=== PATIENT | female | born 1955 | race Caucasian/White ===

== ENCOUNTER → 2018-04-10 | Outpatient (CLI) | payer MEDICAID ==
[2018-04-10 07:32] LABS: Basophils % (A) 1 %; Eosinophils # (A) 0.4 k/uL (0-0.7); Eosinophils % (A) 7 %; HCT 45.9 % (34.0-46.0); HGB 14.7 gm/dL (11.4-16.0); Lymphocytes # (A) 1.7 k/uL (1.0-4.8); Lymphocytes % (A) 26 %; MCH 29.5 pg (25.0-35.0); MCV 92.2 fL (80.0-100.0); Monocytes # (A) 0.7 k/uL (0-1.0); Monocytes % (A) 10 %; Neutrophils # (A) 3.5 k/uL (1.3-7.7); Neutrophils % (A) 55 %; Platelet Count 233 k/uL (150-450); RBC 4.98 m/uL (3.80-5.40); RDW 12.6 % (11.5-15.5); WBC 6.4 k/uL (3.8-10.6)
[2018-04-10 07:39] LABS: INR 2.4 (<1.2); Prothrombin Time 21.5 sec (9.0-12.0)
[2018-04-10 07:55] LABS: ALT 36 U/L (9-52); AST 26 U/L (14-36); Albumin 4.2 g/dL (3.5-5.0); Alkaline Phosphatase 93 U/L (38-126); Anion Gap 10 mmol/L; Blood Urea Nitrogen 19 mg/dL (7-17); Calcium 9.1 mg/dL (8.4-10.2); Carbon Dioxide 28 mmol/L (22-30); Chloride 104 mmol/L (98-107); Cholesterol 186 mg/dL (<200); Glucose 92 mg/dL (74-99); HDL Cholesterol 57 mg/dL (40-60); LDL Cholesterol,Calculated 99 mg/dL (0-99); Potassium 4.4 mmol/L (3.5-5.1); Sodium 142 mmol/L (137-145); Total Bilirubin 0.8 mg/dL (0.2-1.3); Total Protein 6.8 g/dL (6.3-8.2); Triglycerides 148 mg/dL (<150)
[2018-04-10 08:05] LABS: T4, Free (Free Thyroxine) 1.29 ng/dL (0.78-2.19)
== END | disposition home or self-care (01) ==
LOC: LABWHC1 07:01
PROVIDERS: ATTEND Family Medicine
DX: I10 Essential (primary) hypertension (principal); I48.91 Unspecified atrial fibrillation; E03.9 Hypothyroidism, unspecified
CPT/HCPCS: 36415; 80053; 80061; 84439; 84443; 85025; 85610

== ENCOUNTER → 2018-06-14 | Outpatient (CLI) | payer SELFPAY ==
--- NOTE | 2018-06-14 14:12 | MM ---
Reason for exam: screening (asymptomatic). History: Benign excisional biopsy. Physical Findings: A clinical breast exam by your physician is recommended on an annual basis and results should be correlated with mammographic findings. MG Screening Mammo w CAD Bilateral CC and MLO view(s) were taken. There are scattered fibroglandular densities. Stable benign calcifications in the left breast. There is no discrete abnormality. No significant changes when compared with prior studies. ASSESSMENT: Benign, BI-RAD 2 RECOMMENDATION: Routine screening mammogram of both breasts in 1 year.
== END ==
LOC: RADMAMWWP 06:50
PROVIDERS: ATTEND Family Medicine
DX: Z12.31 Encounter for screening mammogram for malignant neoplasm of breast (principal)
CPT/HCPCS: 77067

== ENCOUNTER → 2018-08-14 | Outpatient (CLI) | payer MEDICAID ==
[2018-08-14 07:48] LABS: INR 2.4 (<1.2); Prothrombin Time 21.8 sec (9.0-12.0)
== END ==
LOC: LABWHC1 07:04
PROVIDERS: ATTEND Family Medicine
DX: I48.91 Unspecified atrial fibrillation (principal)
CPT/HCPCS: 36415; 85610

== ENCOUNTER → 2019-01-30 | Outpatient (CLI) | payer MEDICAID ==
[2019-01-30 07:48] LABS: INR 1.9 (<1.2); Prothrombin Time 18.3 sec (9.0-12.0)
[2019-01-30 08:16] LABS: Basophils % (A) 1 %; Eosinophils # (A) 0.2 k/uL (0-0.7); Eosinophils % (A) 4 %; HGB 12.8 gm/dL (11.4-16.0); Lymphocytes # (A) 1.4 k/uL (1.0-4.8); Lymphocytes % (A) 26 %; MCH 29.5 pg (25.0-35.0); MCHC 31.9 g/dL (31.0-37.0); MCV 92.6 fL (80.0-100.0); Mean Platelet Volume 7.2; Monocytes # (A) 0.4 k/uL (0-1.0); Monocytes % (A) 8 %; Neutrophils % (A) 58 %; Platelet Count 245 k/uL (150-450); RBC 4.33 m/uL (3.80-5.40); RDW 13.1 % (11.5-15.5); WBC 5.3 k/uL (3.8-10.6)
[2019-01-30 11:45] LABS: Albumin 4.2 g/dL (3.80-4.90); Albumin/Globulin Ratio 2.47 (1.60-3.17); Anion Gap 6.8 mmol/L (4.00-12.00); Calcium 9.1 mg/dL (8.7-10.3); Carbon Dioxide 28.2 mmol/L (21.6-31.8); Globulin 1.7 g/dL (1.6-3.3); Potassium 4.6 mmol/L (3.5-5.5); Total Bilirubin 0.9 mg/dL (0.2-1.2); Total Protein 5.9 g/dL (6.2-8.2)
[2019-01-30 11:55] LABS: T4, Free (Free Thyroxine) 1.5 ng/dL (0.80-1.80)
== END | disposition home or self-care (01) ==
LOC: LABWHC1 07:14
PROVIDERS: ATTEND Family Medicine
DX: E03.9 Hypothyroidism, unspecified (principal); I10 Essential (primary) hypertension; I48.91 Unspecified atrial fibrillation
CPT/HCPCS: 36415; 80053; 80061; 84439; 84443; 85025; 85610

== ENCOUNTER 2019-04-26 20:13 | Inpatient (IN) | payer MEDICAID ==
[2019-04-26] MEDS ORDERED: KETOROLAC 30 MG/ML 1 ML VIAL IVP STA (21:27)
[2019-04-26] MEDS ORDERED: ONDANSETRON 4 MG/2 ML VIAL IVP STA (21:27)
[2019-04-26] MEDS ORDERED: SODIUM CHLORIDE 0.9% 2,000 ML IV STA (21:27)
--- NOTE | 2019-04-26 21:35 | ED ---
Nausea/Vomiting/Diarrhea HPI - General Chief complaint: Nausea/Vomiting/Diarrhea Stated complaint: Vomiting Time Seen by Provider: 04/26/19 21:18 Source: patient, RN notes reviewed, old records reviewed Mode of arrival: ambulatory Limitations: no limitations - History of Present Illness Initial comments: This is a 63-year-old female who presents prescribed today with nausea vomiting diarrhea episodes after eating scallops last night. She reports it started lessening abdominal cramping. She woke up this morning said multiple episodes of vomiting. She states she has history of atrial defibrillation feels her heart is racing. Patient states that she is on Coumadin. Patient states she has chills. Denies any specific abdominal pain. Patient states that she's had no bloody stools or emesis. - Related Data Allergies Allergy/AdvReac Type Severity Reaction Status Date / Time No Known Allergies Allergy Verified 04/26/19 21:04 Review of Systems ROS Statement: Those systems with pertinent positive or pertinent negative responses have been documented in the HPI. ROS Other: All systems not noted in ROS Statement are negative. Past Medical History Past Medical History: Atrial Fibrillation, Heart Failure, Hypertension, Thyroid Disorder Past Surgical History: Cholecystectomy, Heart Catheterization, Hysterectomy, Joint Replacement, Tonsillectomy Additional Past Surgical History / Comment(s): breast lumpectomy, urinary sling, left knee replacement, D & C, left ovary remaining, Past Psychological History: No Psychological Hx Reported Smoking Status: Never smoker Past Alcohol Use History: Rare Past Drug Use History: Marijuana General Exam - General Exam Comments Initial Comments: This is a 63-year-old female. Alert and oriented. No distress. Limitations: no limitations General appearance: alert, in no apparent distress Head exam: Present: atraumatic, normocephalic, normal inspection Eye exam: Present: normal appearance, PERRL, EOMI. Absent: scleral icterus, conjunctival injection, periorbital swelling ENT exam: Present: normal exam, mucous membranes moist Neck exam: Present: normal inspection. Absent: tenderness, meningismus, lymphadenopathy Respiratory exam: Present: normal lung sounds bilaterally. Absent: respiratory distress, wheezes, rales, rhonchi, stridor Cardiovascular Exam: Present: regular rate, normal rhythm, normal heart sounds. Absent: systolic murmur, diastolic murmur, rubs, gallop, clicks GI/Abdominal exam: Present: soft, normal bowel sounds. Absent: distended, tenderness, guarding, rebound, rigid Extremities exam: Present: normal inspection, full ROM, normal capillary refill. Absent: tenderness, pedal edema, joint swelling, calf tenderness Back exam: Present: normal inspection Neurological exam: Present: alert, oriented X3, CN II-XII intact Psychiatric exam: Present: normal affect, normal mood Skin exam: Present: warm, dry, intact, normal color. Absent: rash Course Vital Signs 04/26/19 04/26/19 04/26/19 20:57 22:38 23:45 Temperature 99.4 F 98.8 F Pulse Rate 127 H 110 H 101 H Respiratory 17 18 18 Rate Blood Pressure 154/101 187/101 191/91 O2 Sat by Pulse 95 98 Oximetry 04/27/19 04/27/19 01:14 03:59 Temperature Pulse Rate 112 H 102 H Respiratory 18 18 Rate Blood Pressure 170/99 169/110 O2 Sat by Pulse 99 98 Oximetry Medical Decision Making - Medical Decision Making Patient 63-year-old female with history of A. fib. She presents with rapid ventricular 130 bpm. She reports having multiple vomiting episodes after eating scallops last night. She was given IV fluids labwork obtained. Patient's labs are reviewed and relatively unremarkable. She did have noted hematuria. Denies any sick significant back pain. Discussed for further evaluation of hematuria due to CT looking for renal cyst. At this time computed tomography scan shows evidence of atrophic gallbladder, also evidence of possibility of pancreatic mass recommended CT with contrast. Patient's amylase and lipase are normal. Patient is given close to 3 L of fluids and stay of her heart rate 120 bpm. On reevaluation Patient was informed of these abnormal CT results. Discussed Patient and admitted for A. fib with RVR, hematuria and possible pancreatic mass. Discussed treatment plan with Dr. Gutierrez. - Lab Data Result diagrams: 04/26/19 21:19 04/26/19 21: Lab Results 04/26/19 04/26/19 04/26/19 Range/Units 21: 21: 21: WBC 11.6 H (3.8-10.6) k/uL RBC 5.15 (3.80-5.40) m/uL Hgb 15.0 (11.4-16.0) gm/dL Hct 45.8 (34.0-46.0) % MCV 88.9 (80.0-100.0) fL MCH 29.1 (25.0-35.0) pg MCHC 32.7 (31.0-37.0) g/dL RDW 13.2 (11.5-15.5) % Plt Count 254 (150-450) k/uL Neutrophils % 84 % Lymphocytes % 10 % Monocytes % 4 % Eosinophils % 1 % Basophils % 0 % Neutrophils # 9.7 H (1.3-7.7) k/uL Lymphocytes # 1.1 (1.0-4.8) k/uL Monocytes # 0.5 (0-1.0) k/uL Eosinophils # 0.1 (0-0.7) k/uL Basophils # 0.0 (0-0.2) k/uL PT 21.0 H (9.0-12.0) sec INR 2.2 H (<1.2) APTT 32.4 H (22.0-30.0) sec Sodium 137 (137-145) mmol/L Potassium 4.2 (3.5-5.1) mmol/L Chloride 99 (98-107) mmol/L Carbon Dioxide 26 (22-30) mmol/L Anion Gap 12 mmol/L BUN 11 (7-17) mg/dL Creatinine 0.58 (0.52-1.04) mg/dL Est GFR (CKD-EPI)AfAm >90 (>60 ml/min/1.73 sqM) Est GFR (CKD-EPI)NonAf >90 (>60 ml/min/1.73 sqM) Glucose 143 H (74-99) mg/dL Calcium 9.2 (8.4-10.2) mg/dL Total Bilirubin 0.6 (0.2-1.3) mg/dL AST 27 (14-36) U/L ALT 22 (9-52) U/L Alkaline Phosphatase 106 (38-126) U/L Troponin I (0.000-0.034) ng/mL Total Protein 7.5 (6.3-8.2) g/dL Albumin 4.6 (3.5-5.0) g/dL Amylase 48 (30-110) U/L Lipase 103 (23-300) U/L Urine Color Urine Appearance (Clear) Urine pH (5.0-8.0) Ur Specific Gustavus (1.001-1.035) Urine Protein (Negative) Urine Glucose (UA) (Negative) Urine Ketones (Negative) Urine Blood (Negative) Urine Nitrite (Negative) Urine Bilirubin (Negative) Urine Urobilinogen (<2.0) mg/dL Ur Leukocyte Esterase (Negative) Urine RBC (0-5) /hpf Urine WBC (0-5) /hpf Ur Squamous Epith Cells (0-4) /hpf Urine Mucus (None) /hpf 04/26/19 04/26/19 Range/Units 21:19 23:33 WBC (3.8-10.6) k/uL RBC (3.80-5.40) m/uL Hgb (11.4-16.0) gm/dL Hct (34.0-46.0) % MCV (80.0-100.0) fL MCH (25.0-35.0) pg MCHC (31.0-37.0) g/dL RDW (11.5-15.5) % Plt Count (150-450) k/uL Neutrophils % % Lymphocytes % % Monocytes % % Eosinophils % % Basophils % % Neutrophils # (1.3-7.7) k/uL Lymphocytes # (1.0-4.8) k/uL Monocytes # (0-1.0) k/uL Eosinophils # (0-0.7) k/uL Basophils # (0-0.2) k/uL PT (9.0-12.0) sec INR (<1.2) APTT (22.0-30.0) sec Sodium (137-145) mmol/L Potassium (3.5-5.1) mmol/L Chloride (98-107) mmol/L Carbon Dioxide (22-30) mmol/L Anion Gap mmol/L BUN (7-17) mg/dL Creatinine (0.52-1.04) mg/dL Est GFR (CKD-EPI)AfAm (>60 ml/min/1.73 sqM) Est GFR (CKD-EPI)NonAf (>60 ml/min/1.73 sqM) Glucose (74-99) mg/dL Calcium (8.4-10.2) mg/dL Total Bilirubin (0.2-1.3) mg/dL AST (14-36) U/L ALT (9-52) U/L Alkaline Phosphatase (38-126) U/L Troponin I <0.012 (0.000-0.034) ng/mL Total Protein (6.3-8.2) g/dL Albumin (3.5-5.0) g/dL Amylase (30-110) U/L Lipase (23-300) U/L Urine Color Yellow Urine Appearance Clear (Clear) Urine pH 5.5 (5.0-8.0) Ur Specific Gustavus 1.022 (1.001-1.035) Urine Protein 1+ H (Negative) Urine Glucose (UA) Negative (Negative) Urine Ketones 1+ H (Negative) Urine Blood Moderate H (Negative) Urine Nitrite Negative (Negative) Urine Bilirubin Negative (Negative) Urine Urobilinogen <2.0 (<2.0) mg/dL Ur Leukocyte Esterase Negative (Negative) Urine RBC 70 H (0-5) /hpf Urine WBC 2 (0-5) /hpf Ur Squamous Epith Cells <1 (0-4) /hpf Urine Mucus Rare H (None) /hpf 04/26/19 21:35 EKG shows atrial fibrillation with RVR P BCs. Right reactive. Nonspecific T- wave abnormality. Possible digitalis effect. Abnormal EKG. Ventricular 131 bpm. : As directed. She methodist 90 seconds. QTQTC 320/484 ms. - Radiology Data Radiology results: report reviewed 3 mm left lower lobe pulmonary nodule. Gallbladder none identified. He surgically absent and contracted. Mild biliary dilation of the common bile duct 1.2 cm prominence of the great head and processes or the possibility of pancreatic mass following up with post CT contrast recommended. Patient also has no evidence of hydronephrosis or renal colliculi identified. Disposition Clinical Impression: Dehydration, Nausea & vomiting, Abnormal CT of the abdomen, Hematuria, Afib Disposition: ADMITTED IP TO THIS HOSP Condition: Stable Is patient prescribed a controlled substance at d/c from ED?: No Referrals: Betty Espinosa DO [Primary Care Provider] - 1-2 days Time of Disposition: 03:35
[2019-04-26 21:40] LABS: Basophils % (A) 0 %; Eosinophils # (A) 0.1 k/uL (0-0.7); Eosinophils % (A) 1 %; HCT 45.8 % (34.0-46.0); Lymphocytes # (A) 1.1 k/uL (1.0-4.8); Lymphocytes % (A) 10 %; MCH 29.1 pg (25.0-35.0); MCHC 32.7 g/dL (31.0-37.0); MCV 88.9 fL (80.0-100.0); Mean Platelet Volume 7.2; Monocytes # (A) 0.5 k/uL (0-1.0); Monocytes % (A) 4 %; Neutrophils # (A) 9.7 k/uL (1.3-7.7); Neutrophils % (A) 84 %; Platelet Count 254 k/uL (150-450); RBC 5.15 m/uL (3.80-5.40); RDW 13.2 % (11.5-15.5); WBC 11.6 k/uL (3.8-10.6)
--- NOTE | 2019-04-26 21:49 | XR ---
EXAMINATION TYPE: XR KUB DATE OF EXAM: 04/26/2019 COMPARISON: NONE HISTORY: Vomiting and cramping TECHNIQUE: 2 views upright FINDINGS: Bowel gas pattern is normal. There is no sign of intestinal obstruction or pneumoperitoneum . Fecal pattern is normal. There is slight lumbar levoscoliosis. Lung bases are clear. There are no p athologic calcifications over the kidneys. IMPRESSION: Nonacute abdomen.
[2019-04-26 21:51] LABS: ALT 22 U/L (9-52); AST 27 U/L (14-36); African American GFR (CKD) >90 (>60 ml/min/1.73 sqM); Albumin 4.6 g/dL (3.5-5.0); Alkaline Phosphatase 106 U/L (38-126); Amylase 48 U/L (30-110); Anion Gap 12 mmol/L; Blood Urea Nitrogen 11 mg/dL (7-17); Calcium 9.2 mg/dL (8.4-10.2); Carbon Dioxide 26 mmol/L (22-30); Chloride 99 mmol/L (98-107); Glucose 143 mg/dL (74-99); INR 2.2 (<1.2); Lipase 103 U/L (23-300); Partial Thromboplastin Time 32.4 sec (22.0-30.0); Potassium 4.2 mmol/L (3.5-5.1); Sodium 137 mmol/L (137-145); Total Bilirubin 0.6 mg/dL (0.2-1.3); Total Protein 7.5 g/dL (6.3-8.2)
[2019-04-26] MEDS ORDERED: LABETALOL SYRINGE 5 MG/ML IVP STA (22:57)
[2019-04-26] MEDS: SODIUM CHLORIDE 0.9% 1,000 ML IV SCH (23:06)
[2019-04-26 23:55] LABS: Appearance,Urine Clear (Clear); Bilirubin,Urine Negative (Negative); Blood,Urine Moderate (Negative); Color,Urine Yellow; Glucose,Urine (UA) Negative (Negative); Ketones,Urine 1+ (Negative); Leukocyte Esterase,Urine Negative (Negative); Mucus,Urine Rare /hpf; Nitrite,Urine Negative (Negative); PH, Urine 5.5 (5.0-8.0); Protein,Urine 1+ (Negative); RBC,Urine 70 /hpf (0-5); Specific Gravity,Urine 1.022 (1.001-1.035); Squamous Epithelial Cell,Urine <1 /hpf (0-4); Urobilinogen,Urine <2.0 mg/dL (<2.0); WBC,Urine 2 /hpf (0-5)
[2019-04-27] MEDS ORDERED: diphenhydrAMINE 50 MG/ML 1 ML VIAL IVP STA (00:23)
[2019-04-27] MEDS ORDERED: METOCLOPRAMIDE 5 MG/ML 2 ML VIAL IVP STA (00:23)
--- NOTE | 2019-04-27 01:41 | CT ---
EXAM: CT Abdomen and Pelvis Without Intravenous Contrast CLINICAL HISTORY: ITS.REASON CT Reason: Pain, hematuruia TECHNIQUE: Axial computed tomography images of the abdomen and pelvis without intravenous contrast. CTDI is 19.3 mGy and DLP is 1143 mGy-cm. This CT exam was performed using one or more of the following dose reduction techniques: automated exposure control, adjustment of the mA and/or kV according to patient size, and/or use of iterative reconstruction technique. COMPARISON: None available FINDINGS: Lung bases: Imaged lung bases are clear focal infiltrates. 3 mm left lower lobe pulmonary nodule. ABDOMEN: Liver: Liver is unremarkable. Gallbladder and bile ducts: Gallbladder not clearly identified and may be surgically absent or contracted. No calcified gallstones. Mild dilatation of common bile duct measuring 1.2 cm to level of pancreatic head. Pancreas: Prominence of pancreatic head and uncinate process. No peripancreatic inflammatory changes or fluid collections. Spleen: Spleen is unremarkable. Adrenals: No adrenal masses. Kidneys and ureters: Kidneys are of normal size bilaterally. No definite renal calculi identified. No evidence of hydronephrosis. No obstructing ureteral calculi. Stomach and bowel: No evidence of bowel obstruction or pneumoperitoneum. Colon is nondistended limiting colonic evaluation. PELVIS: Appendix: No evidence of appendicitis. Bladder: Urinary bladder is nondistended. No bladder calculi. Reproductive: Status post previous hysterectomy. ABDOMEN and PELVIS: Intraperitoneal space: No pelvic free fluid. Bones/joints: Hypertrophic degenerative changes involving lower thoracic spine with prominent anterior ossified information. Multilevel lumbar spine degenerative disc disease and spondylosis. Soft tissues: Small fat-containing umbilical hernia. Vasculature: Moderate calcific atherosclerotic disease. No abdominal aortic aneurysm. Lymph nodes: No evidence of lymphadenopathy. IMPRESSION: 3 mm left lower lobe pulmonary nodule. Gallbladder not clearly identified and may be surgically absent or contracted. Mild biliary dilatation with common bile duct measuring 1.2 cm to level of pancreatic head. Prominence of pancreatic head and uncinate process raising possibility of pancreatic mass/neoplasm. Follow-up pre-and postcontrast CT recommended. No evidence of hydronephrosis and no definite renal calculi identified. <MYCVCSECTION> [employer] 04/27/19 01:46 Verify Receipt Verified receipt with Dr. Lozano on 04/27 01:46 (-04:00)
[2019-04-27] MEDS ORDERED: NALOXONE 0.4 MG/ML 1 ML VIAL IV PRN (03:35)
[2019-04-27] MEDS ORDERED: MORPHINE SULFATE 4 MG/ML SYRINGE IV PRN (03:35)
[2019-04-27] MEDS ORDERED: IBUPROFEN 400 MG TAB PO PRN (03:35)
[2019-04-27] MEDS ORDERED: hydrALAZINE HCL 20 MG/ML 1 ML VIAL IVP STA (04:04)
[2019-04-27 04:53] VITALS: BMI 38.5
[2019-04-27] MEDS: SODIUM CHLORIDE 0.9% 1,000 ML IV SCH ×2 (08:36→21:16)
[2019-04-27] MEDS ORDERED: PANTOPRAZOLE 40 MG/10 ML VIAL IV SCH (09:00)
[2019-04-27] MEDS: ACETAMINOPHEN TAB 325 MG TAB PO PRN (09:45)
[2019-04-27] MEDS ORDERED: DILTIAZEM CD 240 MG CAP.ER.24H PO SCH (10:15)
[2019-04-27] MEDS: FUROSEMIDE 20 MG TAB PO SCH (11:52)
[2019-04-27] MEDS: LOSARTAN 50 MG TAB PO SCH (11:52)
[2019-04-27] MEDS: LEVOTHYROXINE 88 MCG TAB PO SCH (11:52)
[2019-04-27] MEDS: ONDANSETRON 4 MG/2 ML VIAL IVP PRN (12:56)
[2019-04-27] MEDS: WARFARIN 10 MG TAB PO SCH (19:44)
--- NOTE | 2019-04-27 19:59 | P.HPIM ---
History of Present Illness H&P Date: 04/27/19 Chief Complaint: Nausea vomiting History of presenting complaint: This is a 63-year-old patient of Dr. Espinosa. Chronic stable medical conditions include atrial fibrillation, questionable congestive heart failure, hypertension, hypothyroid. Today Monday, patient on night went out to eat at's scallops. Later on she started having abdominal pain. And nausea that night. That is yesterday she had vomiting several times. Became weak tired rundown. Patient felt both "cool and warm. Tired rundown. Admitted for same. Started on IV fluids. Early this morning she vomited once and once this afternoon. is present. Denies diarrhea Review of systems: GEN.: Weak and tired EYES: None HEENT: None NECK: None RESPIRATORY: None CARDIOVASCULAR: None GASTROINTESTINAL: As above GENITOURINARY: None MUSCULOSKELETAL: None LYMPHATICS: None HEMATOLOGICAL: None PSYCHIATRY: None NEUROLOGICAL: None Social history: Does not smoke or drink alcohol. . Family history: Reviewed, noncontributory to presentation Physical examination: VITAL SIGNS: 99.4, 127, 17, 1 54/1 01, 95% room air GENERAL: BMI 38.4, laying in bed, tired appearing. EYES: Pupils equal. Conjunctiva normal. HEENT: External appearance of nose and ears normal, oral cavity dry. NECK: JVD not raised; masses not palpable. HEART: First and second heart sounds are normal; no edema. LUNGS: Respiratory rate normal; clear to auscultation. ABDOMEN: Soft, minimally tender, liver spleen not palpable, no masses palpable. PSYCH: Alert and oriented x3; mood and affect normal. NEUROLOGICAL: Cranial nerves grossly intact; no facial asymmetry, power and sensation grossly intact. LYMPHATICS: No lymph nodes palpable in the axilla and neck Investigations, reviewed in the clinical context: White count 11.6 hemoglobin 15 INR 2.2 potassium 4.2 creatinine 0.58 EKG tracing personally reviewed by me shows atrial fibrillation with a rate about 131 Computed tomography scan of the abdomen-3 mm left lower lobe pulmonary nodule, prominence of pancreatic head Assessment: -Suspect acute food poisoning possibly viral in a patient with scallops followed by abdominal pain, multiple episodes of vomiting. -Persistent atrial fibrillation currently with a rapid ventricular rate with a contribution from dehydration -Chronic congestive heart failure EF not known -Essential hypertension -Hypothyroidism -Obesity BMI 38.4 -Clinically dehydrated Plan: Home medications resumed. Put on clear liquid diet. Care was discussed with the patient. Follow electrolytes. Patient late in the evening went back into sinus rhythm. We'll keep a close eye. If patient goes back into A. fib with a rapid rate then we will consult cardiology. Patient is put on telemetry. will be followed hemodynamically closely Past Medical History Past Medical History: Atrial Fibrillation, Heart Failure, Hypertension, Thyroid Disorder History of Any Multi-Drug Resistant Organisms: None Reported Past Surgical History: Cholecystectomy, Heart Catheterization, Hysterectomy, Joint Replacement, Tonsillectomy Additional Past Surgical History / Comment(s): breast lumpectomy, urinary sling, left knee replacement, D & C, left ovary remaining, Past Psychological History: No Psychological Hx Reported Smoking Status: Never smoker Past Alcohol Use History: Rare Past Drug Use History: Marijuana Medications and Allergies Home Medications Medication Instructions Recorded Confirmed Type Aspirin [Adult Low Dose Aspirin EC] 81 mg PO DAILY 04/27/19 04/27/19 History Cholecalciferol [Vitamin D3 (25 2,000 unit PO DAILY 04/27/19 04/27/19 History Mcg = 1000 Iu)] Diltiazem HCl [Cartia Xt] 240 mg PO DAILY 04/27/19 04/27/19 History Furosemide [Lasix] 20 mg PO DAILY 04/27/19 04/27/19 History Levothyroxine Sodium [Synthroid] 88 mcg PO DAILY 04/27/19 04/27/19 History Losartan Potassium 100 mg PO DAILY 04/27/19 04/27/19 History Magnesium Oxide [Mag-Ox] 250 mg PO Q48H 04/27/19 04/27/19 History Warfarin [Coumadin] 7.5 mg PO MOWE 04/27/19 04/27/19 History Warfarin [Coumadin] 10 mg PO SUTUTHFRSA 04/27/19 04/27/19 History Allergies Allergy/AdvReac Type Severity Reaction Status Date / Time No Known Allergies Allergy Verified 04/27/19 08:39 Physical Exam Vitals: Vital Signs Temp Pulse Pulse Resp BP BP Pulse Ox 04/27/19 16:00 98.1 F 91 14 178/98 95 04/27/19 12:00 98.5 F 98 9 L 146/93 97 04/27/19 08:00 98.1 F 101 H 21 145/87 96 04/27/19 07:00 117 H 23 04/27/19 06:00 112 H 9 L 04/27/19 05:00 98.3 F 110 H 13 145/87 04/27/19 04:27 98.3 F 112 H 10 L 145/87 96 04/27/19 04:25 102 H 18 173/102 98 04/27/19 04:00 103 H 10 L 04/27/19 03:59 102 H 18 169/110 98 04/27/19 03:00 99 13 178/117 04/27/19 02:00 103 H 19 177/119 04/27/19 01:14 112 H 18 170/99 99 04/27/19 01:00 120 H 21 166/102 04/27/19 00:00 108 H 9 L 191/91 04/26/19 23:45 101 H 18 191/91 04/26/19 23:00 109 H 29 H 187/101 04/26/19 22:43 10 L 04/26/19 22:38 98.8 F 110 H 18 187/101 98 04/26/19 20:57 99.4 F 127 H 17 154/101 95 Intake and Output 04/27/19 04/27/19 04/27/19 06:59 14:59 22:59 Intake Total 200 600 Balance 200 600 Intake: IV 200 600 Sodium Chloride 0.9% 1, 200 600 000 ml @ 100 mls/hr IV . Q10H [facility] Rx#:[id number] Other: Voiding Method Toilet Toilet # Voids 1 1 Results CBC & Chem 7: 04/26/19 21:19 04/26/19 21:19 Labs: Abnormal Lab Results - Last 24 Hours (Table) 04/26/19 04/26/19 04/26/19 Range/Units 21:19 21:19 21:19 WBC 11.6 H (3.8-10.6) k/uL Neutrophils # 9.7 H (1.3-7.7) k/uL PT 21.0 H (9.0-12.0) sec INR 2.2 H (<1.2) APTT 32.4 H (22.0-30.0) sec Glucose 143 H (74-99) mg/dL Urine Protein (Negative) Urine Ketones (Negative) Urine Blood (Negative) Urine RBC (0-5) /hpf Urine Mucus (None) /hpf 04/26/19 Range/Units 23:33 WBC (3.8-10.6) k/uL Neutrophils # (1.3-7.7) k/uL PT (9.0-12.0) sec INR (<1.2) APTT (22.0-30.0) sec Glucose (74-99) mg/dL Urine Protein 1+ H (Negative) Urine Ketones 1+ H (Negative) Urine Blood Moderate H (Negative) Urine RBC 70 H (0-5) /hpf Urine Mucus Rare H (None) /hpf
[2019-04-27] MEDS: LACTATED RINGERS 1,000 ML IV SCH (20:45)
[2019-04-27] MEDS: FAMOTIDINE 20 MG TAB PO SCH (21:16)
[2019-04-28] MEDS: ONDANSETRON 4 MG/2 ML VIAL IVP PRN ×2 (02:15→09:49)
[2019-04-28] MEDS: ACETAMINOPHEN TAB 325 MG TAB PO PRN ×2 (02:16→16:04)
[2019-04-28 05:22] LABS: HCT 41.4 % (34.0-46.0); HGB 13.3 gm/dL (11.4-16.0); MCH 29.1 pg (25.0-35.0); MCHC 32.2 g/dL (31.0-37.0); MCV 90.3 fL (80.0-100.0); Mean Platelet Volume 6.9; Platelet Count 205 k/uL (150-450); RBC 4.58 m/uL (3.80-5.40); WBC 16.4 k/uL (3.8-10.6)
[2019-04-28 05:29] LABS: African American GFR (CKD) >90 (>60 ml/min/1.73 sqM); Anion Gap 8 mmol/L; Blood Urea Nitrogen 10 mg/dL (7-17); Calcium 8.6 mg/dL (8.4-10.2); Carbon Dioxide 25 mmol/L (22-30); Chloride 101 mmol/L (98-107); Glucose 117 mg/dL (74-99); Potassium 3.9 mmol/L (3.5-5.1); Sodium 134 mmol/L (137-145)
[2019-04-28] MEDS: LEVOTHYROXINE 88 MCG TAB PO SCH (06:09)
[2019-04-28] MEDS: LACTATED RINGERS 1,000 ML IV SCH ×3 (06:09→21:05)
[2019-04-28] MEDS ORDERED: MAGNESIUM OXIDE 400 MG TAB PO SCH (09:00)
[2019-04-28] MEDS: CHOLECALCIFEROL 1,000 UNIT TAB PO SCH (09:50)
[2019-04-28] MEDS: DILTIAZEM CD 180 MG CAP.ER.24H PO SCH (09:55)
[2019-04-28] MEDS: FAMOTIDINE 20 MG TAB PO SCH ×2 (09:55→21:05)
[2019-04-28] MEDS: FUROSEMIDE 20 MG TAB PO SCH (11:45)
[2019-04-28] MEDS: ASPIRIN 81 MG PO SCH (11:45)
[2019-04-28] MEDS: LOSARTAN 50 MG TAB PO SCH (11:45)
--- NOTE | 2019-04-28 12:51 | P.PN ---
Subjective This is Michelle Knapp PA-C dictating a consult on this patient The patient was interviewed and examined by me as well as by Dr. Serrano Case discussed with Dr. Serrano and he agrees with the plan of care IMPRESSION / ASSESSMENT: Atrial fibrillation with RVR, anticoagulated with warfarin Hypertension, uncontrolled Hypothyroidism PLAN: Increase Cardizem from 240 mg to 360 mg daily for rate control Continue anticoagulation with warfarin for stroke prevention Continue losartan 100 mg by mouth daily Consider additional antihypertensive treatment if blood pressure does not improve with increased dose of Cardizem HPI Patient is a 63-year-old female with a past medical history of atrial fibrillation on anticoagulation, hypertension, hypothyroidism who presented with complaints of nausea, vomiting, and diarrhea after eating shrimp. She also admits to some shortness of breath. Denied chest pain or palpitations. She was found to be in atrial fibrillation with RVR and started on her home dose of Cardizem 240 mg daily. Her rates have remained high and blood pressure has been elevated in the 170s systolic. Patient seen and examined resting in bed. Complaining of some nausea, headache, and shortness of breath. Denies lighth eadedness, dizziness, chest pain or palpitations. ROS: No fevers, chills or rigors, no cough, phlegm or expectoration, no hematuria, dysuria, no musculoskeletal complaints, no strokes or seizures, no skin lesions. EXAMINATION: Temperature 98.1F, pulse 114, respirations 16, blood pressure 182/160, oxygen saturation 95% on room air On exam patient is resting comfortably in bed, no acute distress Lungs clear to auscultation bilaterally Heart is irregularly irregular, no murmurs appreciated Trace lower extremity edema REVIEW OF LABS, ECG & MEDICAL DATA WBC 16.4, hemoglobin 13.3, potassium 3.9, BUN 10, creatinine 0.54, troponin negative, TSH within normal limits EKG shows atrial fibrillation with RVR Objective - Vital Signs Vital signs: Vital Signs Temp 98.8 F 04/28/19 12:00 Pulse 107 H 04/28/19 12:00 Resp 12 04/28/19 12:00 BP 183/121 04/28/19 12:00 Pulse Ox 96 04/28/19 12:00 Intake & Output 04/27/19 04/28/19 04/28/19 18:59 06:59 18:59 Intake Total 600 1375 1000 Balance 600 1375 1000 Weight 124.9 kg Intake: IV 600 1125 1000 Lactated Ringers 1,000 ml 1125 1000 @ 125 mls/hr IV .Q8H [facility] Rx#:[id number] Sodium Chloride 0.9% 1, 600 000 ml @ 100 mls/hr IV . Q10H [facility] Rx#:[id number] Oral 250 Other: Voiding Method Toilet Toilet Bedside Commode # Voids 1 1 2 - Labs CBC & Chem 7: 04/28/19 04:49 04/28/19 04:49 Labs: Abnormal Lab Results - Last 24 Hours (Table) 04/28/19 04/28/19 Range/Units 04:49 04:49 WBC 16.4 H (3.8-10.6) k/uL Sodium 134 L (137-145) mmol/L Glucose 117 H (74-99) mg/dL
--- NOTE | 2019-04-28 15:43 | P.PN ---
Progress Note - Text Progress Note Date: 04/28/19 Chief Complaint: Nausea vomiting History of presenting complaint: This is a 63-year-old patient of Dr. Espinosa. Chronic stable medical conditions include atrial fibrillation, questionable congestive heart failure, hypertension, hypothyroid. Today Monday, patient on night went out to eat at's scallops. Later on she started having abdominal pain. And nausea that night. That is yesterday she had vomiting several times. Became weak tired rundown. Patient felt both "cool and warm. Tired rundown. Admitted for same. Today-his a bit better. Some nausea still present did pass some flatus. Some abdominal queasiness. Had some A. fib. Did try some liquids. Cardiology added Cardizem Review of systems: Was done for constitutional, cardiovascular, GI, pulmonary. relevant finding as above Current medications are reviewed that include: Lactated Ringer's, Cozaar Cardizem CD 360 mg added today Physical examination: VITAL SIGNS: 98.1107, 12, 1 83 / 1 21, 96% GENERAL: Sitting up in the bed, appears better. EYES: Pupils equal. Conjunctiva normal. HEENT: External appearance of nose and ears normal, oral cavity dry. NECK: JVD not raised; masses not palpable. HEART: First and second heart sounds are normal; no edema. LUNGS: Respiratory rate normal; clear to auscultation. ABDOMEN: Soft, minimally tender, liver spleen not palpable, no masses palpable. PSYCH: Alert and oriented x3; mood and affect normal. Investigations, reviewed in the clinical context: White count 16.4 potassium 3.9 BUN 10 creatinine 0.54 EKG tracing personally reviewed by me shows atrial fibrillation with a rate about 131 Computed tomography scan of the abdomen-3 mm left lower lobe pulmonary nodule, prominence of pancreatic head Assessment: -Suspect acute food poisoning possibly viral in a patient with scallops followed by abdominal pain, vomiting is gone down. Some nausea is present. Abdomen is not surgical -Persistent atrial fibrillation currently with a rapid ventricular rate with a contribution from dehydration -Chronic congestive heart failure EF not known -Essential hypertension, accelerated -Hypothyroidism -Obesity BMI 38.4 -Clinically dehydrated Plan: Cardizem CD 360 mg added. Expect blood pressure to come to that. Oral intake and encourage. Sitting up in a chair. Repeat labs in the morning. Keep on telemetry. Care discussed the patient at the bedside.
[2019-04-28] MEDS: WARFARIN 10 MG TAB PO SCH (18:15)
[2019-04-29] MEDS: ACETAMINOPHEN TAB 325 MG TAB PO PRN (02:08)
[2019-04-29] MEDS: LACTATED RINGERS 1,000 ML IV SCH ×2 (03:45→12:38)
[2019-04-29] MEDS: LEVOTHYROXINE 88 MCG TAB PO SCH (05:59)
[2019-04-29 07:24] LABS: Basophils % (A) 0 %; Eosinophils # (A) 0.2 k/uL (0-0.7); Eosinophils % (A) 2 %; HCT 38.7 % (34.0-46.0); HGB 13.4 gm/dL (11.4-16.0); Lymphocytes # (A) 1.3 k/uL (1.0-4.8); Lymphocytes % (A) 13 %; MCH 29.8 pg (25.0-35.0); MCHC 34.5 g/dL (31.0-37.0); MCV 86.4 fL (80.0-100.0); Monocytes % (A) 10 %; Neutrophils # (A) 7.3 k/uL (1.3-7.7); Neutrophils % (A) 73 %; Platelet Count 163 k/uL (150-450); RBC 4.48 m/uL (3.80-5.40); RDW 13.6 % (11.5-15.5); WBC 10.1 k/uL (3.8-10.6)
[2019-04-29 07:40] LABS: African American GFR (CKD) >90 (>60 ml/min/1.73 sqM); Anion Gap 7 mmol/L; Blood Urea Nitrogen 11 mg/dL (7-17); Calcium 8.9 mg/dL (8.4-10.2); Carbon Dioxide 30 mmol/L (22-30); Chloride 98 mmol/L (98-107); Glucose 94 mg/dL (74-99); Potassium 3.4 mmol/L (3.5-5.1); Sodium 135 mmol/L (137-145)
[2019-04-29] MEDS: FAMOTIDINE 20 MG TAB PO SCH (09:19)
[2019-04-29] MEDS: ASPIRIN 81 MG PO SCH (09:19)
[2019-04-29] MEDS: LOSARTAN 50 MG TAB PO SCH (09:19)
[2019-04-29] MEDS: CHOLECALCIFEROL 1,000 UNIT TAB PO SCH (09:19)
[2019-04-29] MEDS: FUROSEMIDE 20 MG TAB PO SCH (09:19)
[2019-04-29] MEDS: DILTIAZEM CD 180 MG CAP.ER.24H PO SCH (09:19)
[2019-04-29 10:50] VITALS: RESP 20; TEMP 98
[2019-04-29] MEDS ORDERED: POTASSIUM CHLORIDE ER 20 MEQ TAB.ER PO STA (11:45)
[2019-04-29 14:34] VITALS: BP 124/73; PULSE 93
--- NOTE | 2019-04-29 14:42 | P.PN ---
Subjective Progress Note Date: 04/29/19 His is a 63-year-old female with past medical history significant for atrial fibrillation, on anticoagulation, hypertension, hypothyroidism, who presented to the hospital with symptoms of nausea vomiting diarrhea. She also had some shortness of breath. She was found to be in atrial fibrillation with a rapid ventricular response. Patient been on Cardizem 240, this was increased yesterday to roberts 360 mg daily. Her heart rate today continues to be in the 100 range. Blood pressure is stable. Recommendation from Dr. Serrano is that the patient may be discharged home, he recommends to follow-up with her brick maker out of town, she may benefit from cardioversion as an outpatient. Blood pressure 120/70. Objective - Vital Signs Vital signs: Vital Signs Temp 98.0 F 04/29/19 08:00 Pulse 93 04/29/19 12:00 Resp 20 04/29/19 08:00 BP 124/73 04/29/19 12:00 Pulse Ox 97 04/29/19 08:00 Intake & Output 04/28/19 04/29/19 04/29/19 18:59 06:59 18:59 Intake Total 1120 160 480 Balance 1120 160 480 Weight 122.4 kg Intake: IV 1000 160 Lactated Ringers 1,000 ml 1000 160 @ 125 mls/hr IV .Q8H [facility] Rx#:[id number] Oral 120 480 Other: Voiding Method Bedside Commode Toilet # Voids 2 1 0 # Bowel Movements 1 - Exam Temperature 98.1F, pulse 114, respirations 16, blood pressure 182/160, oxygen saturation 95% on room air On exam patient is resting comfortably in bed, no acute distress Lungs clear to auscultation bilaterally Heart is irregularly irregular, no murmurs appreciated Trace lower extremity edema - Labs CBC & Chem 7: 04/29/19 06:54 04/29/19 06:54 Labs: Abnormal Lab Results - Last 24 Hours (Table) 04/29/19 Range/Units 06:54 Sodium 135 L (137-145) mmol/L Potassium 3.4 L (3.5-5.1) mmol/L Assessment and Plan Plan: Impression and plan #1 persistent atrial fibrillation, on Coumadin for anticoagulation #2 hypertension #3 hypothyroidism Plan From cardiology's perspective, patient may be able to be discharged home today on current medications, recommendation is that she follow-up with her brick maker out of town within the next one week. Patient may benefit from outpatient elective cardioversion. DNP note has been reviewed, I agree with a documented findings and plan of care. Patient was seen and examined.
[2019-04-29] MEDS ORDERED: WARFARIN 7.5 MG TAB PO SCH (18:00)
--- NOTE | 2019-04-29 19:04 | P.DS ---
Providers Date of admission: 04/27/19 03:48 Expected date of discharge: 04/29/19 Attending physician: Campbell Solitario Consults: 04/27/19 20:11 Consult Physician Routine Consulting Provider: David Serrano Consult Reason/Comments: [id number] Do you want consulting provider notified?: Yes Primary care physician: Betty Espinosa Hospital Course: Hospital course: This is a 63-year-old patient of Dr. Espinosa. Chronic stable medical conditions include atrial fibrillation, questionable congestive heart failure, hypertension, hypothyroid. Today Monday, patient on night went out to eat at's scallops. Later on she started having abdominal pain. And nausea that night. That is yesterday she had vomiting several times. Became weak tired rundown. Patient felt both "cool and warm. Tired rundown. Admitted for same. Patient was treated empirically for acute gastroenteritis. Which resolved. No further nausea vomiting. Tolerating a diet. Also hearted elevated from atrial fibrillation. Cardizem CD was added. Doing much better today. Up and about. Told the nurse to make an appointment outpatient with GI regarding the pancreatic head mass Consultation: Dr. BOB Christianson from cardiology Physical examination: VITAL SIGNS: 98, 100, 20, 128/73, 97% room air GENERAL: Sitting up, comfortable. EYES: Pupils equal. Conjunctiva normal. HEENT: External appearance of nose and ears normal, oral cavity dry. NECK: JVD not raised; masses not palpable. HEART: First and second heart sounds are normal; no edema. LUNGS: Respiratory rate normal; clear to auscultation. ABDOMEN: Soft, non-tender, liver spleen not palpable, no masses palpable. PSYCH: Alert and oriented x3; mood and affect normal. Investigations, reviewed in the clinical context: White count and hemoglobin 13.4 creatinine 0.68 EKG tracing personally reviewed by me shows atrial fibrillation with a rate about 131 Computed tomography scan of the abdomen-3 mm left lower lobe pulmonary nodule, prominence of pancreatic head Discharge diagnosis: -Severe acute food poisoning possibly viral in a patient who had scallops -Persistent atrial fibrillation with a rapid ventricular rate with a c ontribution from dehydration, POA -Chronic congestive heart failure EF not known -Essential hypertension, accelerated -Hypothyroidism -Obesity BMI 38.4 -Clinically dehydrated -Abnormal computed tomography scan with 3 mm left middle lobe pulmonary nodule and prominence of pancreatic head Disposition: Home Patient Condition at Discharge: Stable Plan - Discharge Summary Discharge Rx Participant: No New Discharge Prescriptions: New Diltiazem HCl [Cardizem CD] 360 mg PO DAILY #30 cap.er.24h Continue Furosemide [Lasix] 20 mg PO DAILY Levothyroxine Sodium [Synthroid] 88 mcg PO DAILY Losartan Potassium 100 mg PO DAILY Warfarin [Coumadin] 7.5 mg PO MOWE Magnesium Oxide [Mag-Ox] 250 mg PO Q48H Warfarin [Coumadin] 10 mg PO SUTUTHFRSA Cholecalciferol [Vitamin D3 (25 Mcg = 1000 Iu)] 2,000 unit PO DAILY Aspirin [Adult Low Dose Aspirin EC] 81 mg PO DAILY Discontinued Diltiazem HCl [Cartia Xt] 240 mg PO DAILY Discharge Medication List Aspirin [Adult Low Dose Aspirin EC] 81 mg PO DAILY 04/27/19 [History] Cholecalciferol [Vitamin D3 (25 Mcg = 1000 Iu)] 2,000 unit PO DAILY 04/27/19 [History] Furosemide [Lasix] 20 mg PO DAILY 04/27/19 [History] Levothyroxine Sodium [Synthroid] 88 mcg PO DAILY 04/27/19 [History] Losartan Potassium 100 mg PO DAILY 04/27/19 [History] Magnesium Oxide [Mag-Ox] 250 mg PO Q48H 04/27/19 [History] Warfarin [Coumadin] 7.5 mg PO MOWE 04/27/19 [History] Warfarin [Coumadin] 10 mg PO SUTUTHFRSA 04/27/19 [History] Diltiazem HCl [Cardizem CD] 360 mg PO DAILY #30 cap.er.24h 04/29/19 [Rx] Follow up Appointment(s)/Referral(s): Pato Alexandre MD [Medical Doctor] - (No follow up needed at this time.) Betty Espinosa DO [Primary Care Provider] - 1-2 days Alise Albert PAC [REFERRING] - 05/07/19 2:00 pm
== END 2019-04-29 14:29 | disposition home or self-care (01) | DRG 918 ==
LOC: EC 20:13 → 2SICU 04-27 03:48 → 3SCARD 04-28 16:25
PROVIDERS: ADMIT Hospitalist; ATTEND Hospitalist
DX: T61.8X1A Toxic effect of other seafood, accidental (unintentional), initial encounter (principal); K52.1 Toxic gastroenteritis and colitis; I48.1 Persistent atrial fibrillation; E03.9 Hypothyroidism, unspecified; E66.9 Obesity, unspecified; E86.0 Dehydration; I11.0 Hypertensive heart disease with heart failure; I50.9 Heart failure, unspecified; K86.9 Disease of pancreas, unspecified; R91.1 Solitary pulmonary nodule; Z96.652 Presence of left artificial knee joint; Z68.38 Body mass index [BMI] 38.0-38.9, adult; Z79.01 Long term (current) use of anticoagulants; Z79.82 Long term (current) use of aspirin; Z79.890 Hormone replacement therapy; Z79.899 Other long term (current) drug therapy; Z90.710 Acquired absence of both cervix and uterus; Z90.89 Acquired absence of other organs; Z90.49 Acquired absence of other specified parts of digestive tract; Z98.891 History of uterine scar from previous surgery
CPT/HCPCS: 36415; 74018; 74176; 80048; 80053; 81001; 82150; 83690; 84443; 84484; 85025; 85027; 85610; 85730; 93005; 96361; 96374; 96375; 99285

== ENCOUNTER → 2019-05-13 | Outpatient (CLI) | payer MEDICAID ==
[2019-05-13 11:39] LABS: African American GFR (CKD) 90.3 (60.0-200.0)
== END | disposition home or self-care (01) ==
LOC: LABWHC1 07:19
PROVIDERS: ATTEND Physician Assistant
DX: K86.89 Other specified diseases of pancreas (principal)
CPT/HCPCS: 36415; 82565; 84520; 86301

== ENCOUNTER → 2019-05-16 | Outpatient (CLI) | payer MEDICAID ==
--- NOTE | 2019-05-16 16:48 | MR ---
EXAMINATION TYPE: MR MRCP DATE OF EXAM: 05/16/2019 COMPARISON: CT 04/27/2019 HISTORY: 63-year-old female in greatest mass, Abnormal CT Technique: Multiplanar, multisequence images of the abdomen were acquired. Highly T2 weighted sequenc es of the pancreaticobiliary system for MRCP. Rotational 3-D reconstructions were generated. FINDINGS: Heart size without pericardial effusion. Tiny hiatal hernia. Liver normal size. No signal loss on T1 out of phase sequence to suggest fatty infiltration. There is [id number] intrahepatic and extrahepatic biliary ductal dilatation of the bile duct me asuring 1.3 cm but showing normal distal tapering and no suspicious filling defect. Likely on the bas is of postcholecystectomy status. Adrenal glands, right kidney, and spleen appear within normal limits. A subcentimeter T2 hyperintensi ties/cysts within the left kidney is noted. No obvious solid pancreatic head mass by noncontrast MRI. No cystic pancreatic lesion by MRCP. No upper abdominal lymphadenopathy, ascites fluid, or gross bowel abnormality is seen. Scattered degenerative changes in the lumbar spine. IMPRESSION: 1. Note that the exam was performed as an MRCP. Contrast was not administered. No obvious pancreatic mass on noncontrast sequences. No cystic pancreatic lesion by MRCP. A 3-6 month follow-up contrast en hanced study is recommended to reassess and determine stability of the pancreatic head region which m ay represent normal variation. 2. Mild to moderate intrahepatic and extrahepatic biliary ductal dilatation. The bile duct measures 1 .3 cm but shows distal tapering. This could be on the basis of postcholecystectomy status or ampullar y stenosis. Correlate with alkaline phosphatase and bilirubin levels. 3. Small hiatal hernia.
== END | disposition home or self-care (01) ==
LOC: RADMRIMAIN 07:38
PROVIDERS: ATTEND Internal Medicine Gastroenterology
DX: K83.8 Other specified diseases of biliary tract (principal); K44.9 Diaphragmatic hernia without obstruction or gangrene
CPT/HCPCS: 74181